=== PATIENT | male | born 1960 | race Caucasian/White ===

== ENCOUNTER 2016-03-28 11:34 | Emergency (ER) | payer OTHER ==
[~2016-03-28 11:34] MED LIST: CHILDREN'S ASPI81 M1 PO; DIPROLENE 0.05%50 GM TP; GLUCOPHAGE PO; LISINOPRIL5 MG PO; NEXIUM 20MG CAP20 MG PO; NORCO 325 MG-51 TAB PO; PERCOCET 325 MG1 TA2 PO; PRILOSEC 20MG20 MG PO; TRICOR48 MG PO
[2016-03-28] MEDS ORDERED: SKELAXIN 800MG800 MG PO (13:10)
[2016-03-28] MEDS ORDERED: NORCO 325 MG-51 TA1 PO (13:10)
== END 2016-03-28 13:15 | disposition home or self-care (01) ==
LOC: ED 11:34
DX: S06.0X9A Concussion with loss of consciousness of unspecified duration, initial encounter (principal); T14.8 Other injury of unspecified body region; V43.52XA Car driver injured in collision with other type car in traffic accident, initial encounter

== ENCOUNTER 2016-07-23 07:37 | Emergency (ER) | payer OTHER ==
[~2016-07-23 07:37] MED LIST changes: +NORCO 325 MG-51 TA1 PO; +SKELAXIN 800MG800 MG PO
[2016-07-23] MEDS ORDERED: ATORVASTATIN CA10 MG PO (07:46)
[2016-07-23] MEDS ORDERED: CIPRODEX 0.3%-7.5 ML OT (08:50)
[2016-07-23 08:56] VITALS: BP 100/151
== END 2016-07-23 08:57 | disposition home or self-care (01) ==
LOC: ED 07:37
DX: H60.91 Unspecified otitis externa, right ear (principal); H61.21 Impacted cerumen, right ear

== ENCOUNTER → 2017-12-20 | Outpatient (CLI) | payer OTHER ==
[~2017-12-20] MED LIST changes: +ATORVASTATIN CA10 MG PO; +CIPRODEX 0.3%-7.5 ML OT
== END ==
LOC: RAD 11:04
DX: R22.42 Localized swelling, mass and lump, left lower limb (principal); M79.662 Pain in left lower leg

== ENCOUNTER → 2018-08-12 | Outpatient (CLI) | payer BC | LOC: RAD 13:00 | DX: K76.0 Fatty (change of) liver, not elsewhere classified (principal) | CPT/HCPCS: Q9967 ==

== ENCOUNTER → 2019-06-09 | Outpatient (CLI) | payer BC | LOC: VAS 16:38 → RAD 16:45 | DX: I35.1 Nonrheumatic aortic (valve) insufficiency (principal) ==

== ENCOUNTER → 2019-08-04 | Outpatient (CLI) | payer BC ==
[2019-08-04 12:16] LABS: EOS # 0.1 (0.04-0.40); EOS % 2.5 % (0.0-4.0); HEMATOCRIT 40.7 % (42.0-52.0); HEMOGLOBIN 13.5 g/dL (13.5-18.0); LYMPH# 1.2 (1.50-4.00); MEAN CELL VOLUME 90 fl (78-100); MEAN CORPUSCULAR HEMOGLOBIN 30 pg (27-31); MEAN CORPUSCULAR HGB CONC 33 g/dL (33-37); MEAN PLATELET VOLUME 9.5 fl (7.4-10.4); MONO # 0.5 (0.20-0.80); NEU # 3.4 (1.40-6.50); PLATELET COUNT 144 K/mm3 (130-400); RED BLOOD COUNT 4.53 M/mm3 (4.20-5.60); RED CELL DISTRIBUTION WIDTH 12.3 % (11.5-14.5); WHITE BLOOD COUNT 5.2 K/mm3 (4.8-10.8)
[2019-08-04 12:52] LABS: TROPONIN-I < 0.03 ng/mL (<0.030)
[2019-08-04 12:57] LABS: D-DIMER 0.3 mg/L FEU (0.15-0.50)
[2019-08-04 16:48] LABS: ALBUMIN 4.4 g/dL (3.5-5.0); POTASSIUM 4.4 mmol/L (3.5-5.1); SODIUM 138 mmol/L (136-145)
[2019-08-04 16:50] LABS: CALCIUM 9.4 mg/dL (8.3-10.5)
[2019-08-04 16:51] LABS: GLUCOSE 136 mg/dL (75-110); TOTAL PROTEIN 7.2 g/dL (6.4-8.3)
[2019-08-04 16:52] LABS: CARBON DIOXIDE 19 mmol/L (22-29)
[2019-08-04 16:53] LABS: TOTAL BILIRUBIN 0.3 mg/dL (0.2-1.2)
[2019-08-04 16:56] LABS: AST-SGOT 40 U/L (5-34)
[2019-08-04 16:57] LABS: ALT/SGPT 33 U/L (0-55)
== END ==
LOC: LAB 11:59
PROVIDERS: Family Medicine
DX: R07.9 Chest pain, unspecified (principal); R53.83 Other fatigue

== ENCOUNTER → 2019-12-08 | Outpatient (CLI) | payer BC | LOC: RAD 15:45 → VAS 16:04 | DX: I35.1 Nonrheumatic aortic (valve) insufficiency (principal) ==

== ENCOUNTER → 2021-12-05 | Day surgery (SDC) | payer OTHER | LOC: MSO 08:18 | DX: Z12.11 Encounter for screening for malignant neoplasm of colon (principal); Z80.0 Family history of malignant neoplasm of digestive organs; Z87.891 Personal history of nicotine dependence | CPT/HCPCS: 00811; J2704; J7120 ==